=== PATIENT | female | born 1985 | race Caucasian/White ===

== ENCOUNTER 2017-04-24 19:25 | Emergency (ER) | payer OTHER ==
[2017-04-24 20:51] LABS: BILIRUBIN,URINE NEGATIVE (NEGATIVE); GLUCOSE, URINE (UA) NEGATIVE (NEGATIVE); KETONES,URINE (UA) NEGATIVE (NEGATIVE); LEUKOCYTE ESTERASE, URINE TRACE (NEGATIVE); NITRITE,URINE NEGATIVE (NEGATIVE); OCCULT BLOOD,URINE NEGATIVE (NEGATIVE); PROTEIN,URINE NEGATIVE (NEGATIVE); UROBILINOGEN,URINE 0.2 (NORMAL) E.U./dL (NORMAL)
[2017-04-24 21:07] LABS: CLARITY,URINE CLEAR (CLEAR)
[2017-04-24 21:08] LABS: BACTERIA,URINE Few /HPF (None Seen); RBC,URINE 0-5 /HPF (0-5); SQUAMOUS EPITHELIAL CELL,UR MOD Squamous (<= Few)
[2017-04-24 21:15] LABS: HCG UR QUAL NEGATIVE
[2017-04-24 21:19] LABS: BASOPHILS # (AUTO) 0.1 10^3/uL (0.0-0.1); EOSINOPHILS # (AUTO) 0.1 10^3/uL (0.0-0.7); EOSINOPHILS % (AUTO) 1.1 %; HGB - HEMOGLOBIN 12.1 g/dL (12.0-16.0); LYMPHOCYTES # (AUTO) 2.4 10^3/uL (1.5-3.5); LYMPHOCYTES % (AUTO) 29.2 %; MEAN CORPUSCULAR HEMOGLOBIN 26.2 pg (27.0-31.0); MEAN CORPUSCULAR HGB CONC 32.6 g/dL (32.0-36.0); MEAN CORPUSCULAR VOLUME 80.4 fL (81.0-99.0); MEAN PLATELET VOLUME 7.1 fL (7.9-10.8); MONOCYTES # (AUTO) 0.4 10^3/uL (0.0-1.0); NEUTROPHILS # (AUTO) 5.2 10^3/uL (1.5-6.6); NEUTROPHILS % (AUTO) 63.7 %; PLT - PLATELET COUNT 444 10^3/uL (130-450); RED BLOOD COUNT 4.61 10^6/uL (4.20-5.40); RED CELL DISTRIBUTION WIDTH 14.3 % (12.0-15.0); WHITE BLOOD COUNT 8.2 x10^3/uL (4.8-10.8)
[2017-04-24 21:28] LABS: ALBUMIN/GLOBULIN RATIO 1.2 (1.0-2.2); BILIRUBIN,TOTAL 0.6 mg/dL (0.2-1.0); CALCIUM 9.2 mg/dL (8.5-10.3); CREATININE 0.6 mg/dL (0.4-1.0); TOTAL PROTEIN 7.4 g/dL (6.7-8.2)
--- NOTE | 2017-04-24 23:29 | Ultrasound Preliminary Report ---
Exam: US RETROPERITONEAL IMPRESSION: 1. Multiple bilateral renal cysts. No concerning sonographic features. 2. No renal stones, solid mass or hydronephrosis. 3. Normal bladder. [facility] SITE ID: [id number]
[2017-04-24] MEDS ORDERED: SODIUM CHLORIDE 0.9% 1,000 ML IV ONE (23:32)
[2017-04-24] MEDS ORDERED: HYDROcod/ACETAM 5/325 MG TABLET PO STA (23:33)
--- NOTE | 2017-04-24 23:43 | Ultrasound Report ---
EXAM: RENAL ULTRASOUND EXAM DATE: 04/24/2017 11:03 PM. CLINICAL HISTORY: History of PKD with left-sided pain. COMPARISON: None. TECHNIQUE: Real-time scanning was performed with static images obtained. FINDINGS: Right Kidney: 11.5 x 5 x 5.3 cm. No solid renal mass, stones or hydronephrosis. Multiple small renal cysts measuring up to 1 cm. No concerning sonographic features. Left Kidney: 12 x 6 x 8.8 cm. No solid renal mass, stones or hydronephrosis. There are multiple cysts in the left kidney of varying sizes. The largest is noted in the inferior left kidney measuring 3.9 x 3.6 x 3.5 cm. Bladder: Bilateral jets seen. The prevoid bladder volume was 213 cc. The postvoid bladder volume was 15 cc. Other: None. IMPRESSION: 1. Multiple bilateral renal cysts. No concerning sonographic features. 2. No renal stones, solid mass or hydronephrosis. 3. Normal bladder. [facility] Referring Provider Line: [phone] SITE ID: [id number]
--- NOTE | 2017-04-25 00:04 | ED Physician Documentation ---
History of Present Illness - Stated complaint Stated Complaint: FEMALE - Chief complaint Chief Complaint: Abd Pain - History obtained from History obtained from: Patient (pt with Poly cystic kidney Dz here with left > right flank pain, no urinary sx, no blood in the urine. states that her symptoms worsened today while watching TV.) Review of Systems Constitutional: denies: Fever, Chills Cardiac: denies: Chest pain / pressure, Palpitations Respiratory: denies: Dyspnea, Cough GI: reports: Nausea. 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 - Present Medications Home Medications: Ambulatory Orders Medication Instructions Recorded Confirmed HYDROcod/ACETAM 5/325 [[place] 5/325] 1 each PO Q6H PRN #5 tablet 04/25/17 - Allergies Allergies/Adverse Reactions: Allergies Allergy/AdvReac Type Severity Reaction Status Date / Time No Known Drug Allergies Allergy Verified 04/24/17 19:32 - Social History Does the pt smoke?: Yes Smoking Status: Current some day smoker Does the pt drink ETOH?: Yes ETOH Use: Beer - Immunizations Immunizations are current?: Yes PD ED PE NORMAL - Vitals Vital signs reviewed: Yes - General General: Alert and oriented X 3, No acute distress, Well developed/nourished - HEENT HEENT: Atraumatic, Moist mucous membranes - Cardiac Cardiac: RRR, No murmur - Respiratory Respiratory: No respiratory distress, Clear bilaterally - Abdomen Abdomen: Soft, Non tender, Non distended - Back Back: No spinal TTP. No: No CVA TTP (left and right CVA tenderness) - Derm Derm: Normal color, No rash - Neuro Neuro: Alert and oriented X 3 Eye Opening: Spontaneous Motor: Obeys Commands Verbal: Oriented GCS Score: 15 - Psych Psych: Normal mood, Normal affect Results - Vitals Vitals: Vital Signs - 24 hr 04/24/17 19:28 Temperature 36.4 C L Heart Rate 86 Respiratory 18 Rate Blood Pressure 136/85 H O2 Saturation 98 Oxygen O2 Source Room air - Labs Labs: Laboratory Tests 04/24/17 04/24/17 04/24/17 19:35 19:35 21:00 WBC 8.2 RBC 4.61 Hgb 12.1 Hct 37.1 MCV 80.4 L MCH 26.2 L MCHC 32.6 RDW 14.3 Plt Count 444 MPV 7.1 L Neut # 5.2 Lymph # 2.4 Wells # 0.4 Eos # 0.1 Baso # 0.1 Absolute Nucleated RBC 0.00 Nucleated RBC % 0.0 Sodium Potassium Chloride Carbon Dioxide Anion Gap BUN Creatinine Estimated GFR (MDRD) Glucose Calcium Total Bilirubin AST ALT Alkaline Phosphatase Total Protein Albumin Globulin Albumin/Globulin Ratio Lipase Urine Color YELLOW Urine Clarity CLEAR Urine pH 6.0 Ur Specific [place] <=1.005 1.005 Urine Protein NEGATIVE Urine Glucose (UA) NEGATIVE Urine Ketones NEGATIVE Urine Occult Blood NEGATIVE Urine Nitrite NEGATIVE Urine Bilirubin NEGATIVE Urine Urobilinogen 0.2 (NORMAL) Ur Leukocyte Esterase TRACE H Urine RBC 0-5 Urine WBC 6-10 H Ur Squamous Epith Cells MOD Squamous H Urine Bacteria Few Ur Microscopic Review INDICATED Urine Culture Comments NOT INDICATED Urine HCG, Qual NEGATIVE 04/24/17 21:00 WBC RBC Hgb Hct MCV MCH MCHC RDW Plt Count MPV Neut # Lymph # Wells # Eos # Baso # Absolute Nucleated RBC Nucleated RBC % Sodium 137 Potassium 3.8 Chloride 101 Carbon Dioxide 26 Anion Gap 10.0 BUN 12 Creatinine 0.6 Estimated GFR (MDRD) 115 Glucose 102 H Calcium 9.2 Total Bilirubin 0.6 AST 17 ALT 20 Alkaline Phosphatase 63 Total Protein 7.4 Albumin 4.0 Globulin 3.4 Albumin/Globulin Ratio 1.2 Lipase 29 Urine Color Urine Clarity Urine pH Ur Specific [place] Urine Protein Urine Glucose (UA) Urine Ketones Urine Occult Blood Urine Nitrite Urine Bilirubin Urine Urobilinogen Ur Leukocyte Esterase Urine RBC Urine WBC Ur Squamous Epith Cells Urine Bacteria Ur Microscopic Review Urine Culture Comments Urine HCG, Qual - Rads (name of study) renal ultrasound Radiology: Final report received (multiple bilateral renal cysts no renal stones or hydro), EMP read contemporaneously PD MEDICAL DECISION MAKING - ED course Complexity details: reviewed results, re-evaluated patient, considered differential, d/w patient, d/w family ED course: pt with benign exam. UA neg for UTI. renal US unremarkable for acute pathology. discussed with the pt. will have her follow up with her primary care provider to discuss urology follow up. Departure - Departure Disposition: 01 Home, Self Care Clinical Impression: Flank pain, acute Condition: Good Instructions: Simple Renal Cysts Follow-Up: Nate Crow MD [Primary Care Provider] - Prescriptions: HYDROcod/ACETAM 5/325 [[place] 5/325] 1 each PO Q6H PRN #5 tablet PRN Reason: Pain Comments: Increase your fluid intake. Call your primary care provider for a follow up and to discuss urology consult. Return to the ER for any new or worsening symptoms.
[2017-04-25 00:46] VITALS: BP 114/73
== END 2017-04-25 00:43 | disposition home or self-care (01) ==
LOC: ED 19:25
DX: R10.9 Unspecified abdominal pain (principal); Q61.02 Congenital multiple renal cysts; F17.200 Nicotine dependence, unspecified, uncomplicated
CPT/HCPCS: 36415; 76770; 80053; 81001; 81025; 83690; 85025; 96360; 99283; A9270; 81003; 87086

== ENCOUNTER 2019-05-14 20:09 | Emergency (ER) | payer OTHER ==
--- NOTE | 2019-05-14 20:42 | ED Physician Documentation ---
PD HPI HEADACHE - Stated complaint Stated Complaint: MCCLOUD - Chief complaint Chief Complaint: Neuro - History obtained from History obtained from: Patient - History of Present Illness Timing - onset: Yesterday Timing - details: Gradual onset Pain level now: 8 Worst headache ever?: No: Worst headache ever? Location: Global Quality: Throbbing Associated symptoms: Nausea. No: Fever, Stiff neck, Vomiting, Weakness, Numbness Improved by: Rest, Dark room, Quiet Worsened by: Light, Noise, Moving Similar symptoms before: Diagnosis (migraine) Recently seen: Not recently seen Review of Systems Constitutional: denies: Fever Eyes: reports: Photophobia. denies: Loss of vision, Decreased vision Cardiac: reports: Reviewed and negative Respiratory: reports: Reviewed and negative GI: reports: Nausea. denies: Abdominal Pain, Vomiting Neurologic: reports: Headache. 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 - Present Medications Home Medications: Ambulatory Orders Medication Instructions Recorded Confirmed HYDROcod/ACETAM 5/325 [[place] 5/325] 1 each PO Q6H PRN #5 tablet 04/25/17 Promethazine [Phenergan] 25 mg PO Q6H PRN #10 tab 05/14/19 - Allergies Allergies/Adverse Reactions: Allergies Allergy/AdvReac Type Severity Reaction Status Date / Time No Known Drug Allergies Allergy Verified 05/14/19 20:17 - Social History Does the pt smoke?: Yes Smoking Status: Current some day smoker Does the pt drink ETOH?: Yes - Immunizations Immunizations are current?: Yes PD ED PE NORMAL - Vitals Vital signs reviewed: Yes - General General: Alert and oriented X 3, No acute distress, Well developed/nourished - HEENT HEENT: PERRL, EOMI, Moist mucous membranes - Cardiac Cardiac: RRR, No murmur - Respiratory Respiratory: No respiratory distress, Clear bilaterally - Neuro Neuro: Alert and oriented X 3, 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 She feels well enough for discharge, declines further medications in ED Departure - Departure Disposition: 01 Home, Self Care Clinical Impression: Migraine Condition: Good Instructions: ED Headache Migraine Follow-Up: SHARRON ESPARZA DO [Primary Care Provider] - Prescriptions: Promethazine [Phenergan] 25 mg PO Q6H PRN #10 tab PRN Reason: Nausea / Vomiting Discharge Date/Time: 05/14/19 21:37
[2019-05-14] MEDS ORDERED: PROMETHAZINE 25 MG/1 ML VIAL IM STA (20:53)
[2019-05-14] MEDS ORDERED: KETOROLAC 60 MG/2 ML VIAL IM STA (20:53)
[2019-05-14] MEDS ORDERED: diphenhydrAMINE INJ 50 MG/ML VIAL IM STA (20:53)
[2019-05-14 21:38] VITALS: BP 130/90
== END 2019-05-14 21:37 | disposition home or self-care (01) ==
LOC: ED 20:09
DX: G43.909 Migraine, unspecified, not intractable, without status migrainosus (principal); F17.200 Nicotine dependence, unspecified, uncomplicated
CPT/HCPCS: 96372; 99283; 99284; J1200